=== PATIENT | male | born 1975 | race Two or more races ===

== ENCOUNTER 2018-06-16 09:11 | Emergency (ER) | payer OTHER ==
[~2018-06-16] VITALS: Ht 198.1 cm; Wt 113.4 kg
[2018-06-16] MEDS ORDERED: METFORMIN HCL500 M2 PO (09:22)
[2018-06-16] MEDS ORDERED: JANUVIA50 MG PO (09:23)
[2018-06-16] MEDS ORDERED: INTESTINEX680 M1 PO (13:13)
[2018-06-16] MEDS ORDERED: DICY20TA PO (13:13)
== END 2018-06-16 14:49 | disposition home or self-care (01) ==
LOC: ER 09:11
DX: K52.9 Noninfective gastroenteritis and colitis, unspecified (principal); E86.0 Dehydration

== ENCOUNTER 2018-07-18 11:02 | Emergency (ER) | payer OTHER ==
[~2018-07-18] VITALS: Ht 198.1 cm; Wt 122.5 kg
[~2018-07-18 11:02] MED LIST: DICY20TA PO; INTESTINEX680 M1 PO; JANUVIA50 MG PO; METFORMIN HCL500 M2 PO
== END 2018-07-18 15:04 | disposition home or self-care (01) ==
LOC: ER 11:02
DX: S62.634A Displaced fracture of distal phalanx of right ring finger, initial encounter for closed fracture (principal); W22.8XXA Striking against or struck by other objects, initial encounter; Y93.89 Activity, other specified; Y92.69 Other specified industrial and construction area as the place of occurrence of the external cause; Y99.8 Other external cause status

== ENCOUNTER 2018-08-17 06:05 | Day surgery (SDC) | payer OTHER | END 2018-08-17 10:02 | disposition home or self-care (01) | LOC: AMB-ENDOS 06:05 | DX: D12.3 Benign neoplasm of transverse colon (principal); D12.4 Benign neoplasm of descending colon; K64.8 Other hemorrhoids ==

== ENCOUNTER 2018-09-15 13:40 | Emergency (ER) | payer OTHER ==
[~2018-09-15] VITALS: Ht 198.1 cm; Wt 122.5 kg
== END 2018-09-15 20:15 | disposition home or self-care (01) ==
LOC: ER 13:40 → CPU-OBS 14:11 → ER 20:15
DX: R07.89 Other chest pain (principal)
CPT/HCPCS: G0378; G0379; 93005